=== PATIENT | female | born 1995 | race Caucasian/White ===

== ENCOUNTER 2017-08-09 21:26 | Day surgery (SDC) | payer OTHER ==
--- NOTE | 2017-08-09 22:38 | PDOC.LDHP ---
Labor and Delivery H&P Chief complaint: contractions HPI: 22 yo @ 37.2 by lmp and first tri US presents for painful contractions which she reports have been occurring over the last 2 days sporadically but have been more frequent over last 2 hours. Reports some vaginal discharge over last 2 days, denies recent intercourse, denies dysuria, denies NVDC, cp, sob, vaginal discharge, denies complications up to this point. H/o bicornuate uterus. Takes PNV. Recently seen in [facility] for similar complaints and found to be 3, 50%, -2 at that time. Current gestational age (weeks): 37 Due date: 08/28/17 Dating criteria: last menstrual period, first trimester ultrasound Grav: 2 Para: 1 Abnormal US findings: Yes (bicornuate uterus) Current medications: pre- vitamins Previous surgical history: other (ovarian cyst removal) - Physical Exam Vital signs reviewed and normal: yes General: NAD, resting Heart: RRR Lungs: nonlabored breathing Abdomen: NTTP Extremeties: no edema FHT: category 1, variability present (positive accelerations) - Vaginal Exam cm dilated: 3 Effacement: 75% Station: -2 - OB Labs Blood type: A RH: positive Antibody Screen: negative HIV: negative RPR: negative HEPSAg: negative 1 hour GCT: negative GBS: negative Urine drug screen: negative Rubella: immune - Assessment painful contractions - Plan Plan: observation in L&D -: 22 yo @ 37.2 presents for painful contractions, increasing in frequency over last 2 hours po hydrate amnisure external monitors recheck cervix in 1-2 hrs <Iam Fenton - Last Filed: 08/09/17 22:33> <Tal Mcmanus - Last Filed: 08/10/17 09:27> Allergies/Adverse Reactions: Allergies Allergy/AdvReac Type Severity Reaction Status Date / Time No Known Drug Allergies Allergy Verified 09/27/13 12:33 promethazine [From Phenergan] Allergy Verified 05/13/17 17:01 Attending Addendum - Attending Addendum I discussed the management with Dr. Fenton. I agree with the History, Examination, Assessment and Plan documented above with any addition or exceptions noted below. <Tal Mcmanus - Last Filed: 08/10/17 09:27>
[2017-08-09 23:18] LABS: Amnisure Test No Membranes Rupture (No Rupture)
[2017-08-10 00:09] LABS: Bilirubin Negative (Negative); Blood, Urine Negative (Negative); Glucose, Urine (Dipstick) Negative (Negative); Ketone, Urine Negative (Negative); Nitrite Negative (Negative); Protein, Urine (Dipstick) Negative (Neg-Trace)
== END 2017-08-09 23:45 ==
LOC: L&D/OP 21:26
PROVIDERS: ATTEND Family Medicine
DX: O47.1 False labor at or after 37 completed weeks of gestation (principal); Q51.3 Bicornate uterus; Z3A.37 37 weeks gestation of pregnancy; Z79.899 Other long term (current) drug therapy; Z88.8 Allergy status to other drugs, medicaments and biological substances; Z98.890 Other specified postprocedural states
CPT/HCPCS: 81003; 84112; 87480; 87510; 87660

== ENCOUNTER 2017-08-29 05:46 | Inpatient (IN) | payer OTHER ==
[2017-08-29 06:14] VITALS: BMI 22.1
[2017-08-29] MEDS: Lactated Ringer's 1,000 ML IV SCH ×2 (06:25→10:41)
[2017-08-29] MEDS ORDERED: Ondansetron HCl/PF 4 MG/2 ML Vial IVP PRN ×3 (06:43→17:09)
[2017-08-29] MEDS ORDERED: Lidocaine 1% (PF) 30 ML VIAL SC PRN (06:43)
[2017-08-29] MEDS ORDERED: LR / Pitocin 40 units/1000 ml 1,000 ML IV PRN (06:43)
[2017-08-29] MEDS ORDERED: Acetaminophen 500 MG TAB PO PRN (06:43)
[2017-08-29] MEDS ORDERED: LR 500 ML/Oxytocin 10 units 500 ML IV SCH (06:45)
[2017-08-29 06:57] LABS: Hematocrit 28.1 % (36.0-47.0); Mean Platelet Volume 5.9 fL (7.4-10.4); Red Blood Cell (RBC) Count 3.11 mill/uL (4.20-5.40); White Blood Cell (WBC) Count 9.2 thou/uL (4.8-10.8)
[2017-08-29] MEDS ORDERED: Calcium Carbonate 500 MG ChewTAB PO PRN (08:31)
[2017-08-29] MEDS ORDERED: Fentanyl 4 mcg/Marc 0.1% Cadd 100 ML ONE (09:12)
--- NOTE | 2017-08-29 09:13 | PDOC.LDPN ---
Labor & Delivery Progress Note - Subjective Subjective: comfortable, vaginal pressure - Objective Vital signs reviewed and normal: yes General: NAD, breathing through contractions Uterine fundus: non tender Dilation: 5 Effacement: 90% Station: -1 FHT: category 1, variability present [place] contractions every: 5 - Assessment (1) Current Visit: Yes Status: Acute QualifierTitle: Weeks of gestation: 40 weeks Qualified Code(s): Z3A.40 - 40 weeks gestation of Comment: @40.1 weeks presents for induction of labor. Initial cervical check she was @ /-1 @7:00. Check at 9:00- /-1. FHR 130, moderate variability noted. Accels noted. No decels noted. Bag is intact. Has not made change after being on pitocin. Will continue with pitocin and increase per protocol. May break her water and insert an IUPC. Wants an epidural. Will place before breaking water. -Will continue to monitor FHT. Plan: pitocin for augmentation <Valdemar Krishnamurthy - Last Filed: 08/29/17 09:10> Attending Addendum - Attending Addendum I personally evaluated the patient and discussed the management with Dr. Krishnamurthy I agree with the History, Examination, Assessment and Plan documented above with any addition or exceptions noted below. Pitocin induction for post-date. Continue increasing pitocin until good contraction pattern. Consider AROM at next check. No IUPC at this time <Winter Cornelius - Last Filed: 08/29/17 09:31>
[2017-08-29] MEDS ORDERED: ePHEDrine/0.9% NaCl/PF SYRINGE 50 mg/10 ml SLOW IVP PRN (10:34)
[2017-08-29] MEDS ORDERED: Acetaminophen 325 MG TAB PO PRN (10:34)
[2017-08-29] MEDS ORDERED: Eucerin (Mineral Oil/Petrolatum,White) 30 gm Jar TOP PRN (10:34)
[2017-08-29] MEDS ORDERED: Naloxone HCl 0.4 mg/ml Vial IVP PRN ×2 (10:34)
[2017-08-29] MEDS ORDERED: Lactated Ringer's 500 ML IV PRN (10:34)
[2017-08-29] MEDS ORDERED: diphenhydrAMINE 50 MG/ML VIAL IVP PRN (10:34)
[2017-08-29] MEDS ORDERED: Communication Order-Pharmacy FS SCH (10:45)
[2017-08-29] MEDS ORDERED: Fentanyl 4mcg/Marcaine 0.1% Cassette 100 ML EPIDURAL SCH (10:45)
--- NOTE | 2017-08-29 11:07 | PDOC.LDPN ---
Labor & Delivery Progress Note - Subjective Subjective: comfortable, painful contractions (Just had epidural placed), other (Has ) - Objective Vital signs reviewed and normal: yes General: NAD Uterine fundus: non tender SVE: 11:00 Dilation: 7 Effacement: 90% Station: -1 FHT: category 1, variability present [place] contractions every: 2 min AROM: clear fluid - Assessment (1) Current Visit: Yes Status: Acute Qualifiers: Weeks of gestation: 40 weeks Qualified Code(s): Z3A.40 - 40 weeks gestation of Comment: @40.1 weeks presents for induction of labor. Initial cervical check she was @ 5/80/-1 @7:00. Check at 9:00- 5/90/-1. FHR 130, moderate variability noted. Accels noted. No decels noted. Check at 11:00 7/90/-1. FHR 130. Moderate variability noted. Accels noted. No decels. Cat 1 strip -Pitocin running at 10 -Epidural was placed. Having minimal pain with contractions -AROM was performed at this check. Clear fluid noted. -Will continue to monitor FHT and recheck in a couple hours
--- NOTE | 2017-08-29 13:20 | PDOC.OPDEL ---
OB Operative/Delivery Note Delivery Dr/Surgeon: Sally Elizabeth MD Assist: Attending: Latia Upton MD Pre-Delivery Diagnosis: active labor, elective induction Procedure/Post Delivery Dx: spontaneous vaginal delivery Weeks gestation: 40 (40.1w) Anesthesia: epidural - Findings A Sex: male - 1 min: 9 - 5 min: 9 - Additional Findings/Plan Placenta delivered: spontaneous Repaired Obstetrical Laceration: none Estimated blood loss: 100 mL Post delivery plan: routine recovery <Sally Elizabeth - Last Filed: 08/29/17 13:19> Attending Addendum - Attending Addendum I was present for the entirety of the delivery. Agree with above. <Everton Upton - Last Filed: 08/29/17 16:17>
--- NOTE | 2017-08-29 15:18 | PDOC.EVN ---
Event Note - Event Note Event Note: CS ASSIST NOTE: Called to assist Dr Starr with a primary CS for ROM with no labor initiation despite uterotonic agents. Primary LTCS performed under pfannestiel without complications. Single layer hysterotomy closure. Compl: none. On Q pump placed. Please see full note by Dr starr.
[2017-08-29] MEDS ORDERED: Adacel (T-DAP) 0.5 ML VIAL IM ONE (17:09)
[2017-08-29] MEDS ORDERED: Ibuprofen 800 MG TAB PO SCH (17:09)
[2017-08-29] MEDS ORDERED: LR / Pitocin 40 units/1000 ml 1,000 ML IV SCH (17:09)
[2017-08-29] MEDS ORDERED: diphenhydrAMINE 25 MG CAP PO PRN (17:09)
[2017-08-29] MEDS ORDERED: Milk Of Magnesia 30 ML UDCUP PO PRN (17:09)
[2017-08-29] MEDS ORDERED: Benzocaine/Menthol 20-0.5% 60 ML CAN TOP PRN (17:09)
[2017-08-29] MEDS ORDERED: Bisacodyl 10 MG SUPP PR PRN (17:09)
[2017-08-29] MEDS ORDERED: Preparation H Ointment 28 GM TUBE PR PRN (17:09)
[2017-08-29] MEDS: Ferrous Sulfate 325 MG TAB PO SCH (20:40)
[2017-08-29] MEDS: Docusate (Surfak) 240 MG CAP PO SCH (20:40)
[2017-08-29] MEDS: Ibuprofen 800 MG TAB PO SCH (20:40)
[2017-08-30] MEDS: Ibuprofen 800 MG TAB PO SCH ×2 (04:54→14:25)
[2017-08-30 05:56] LABS: Hematocrit 32.1 % (36.0-47.0); Mean Platelet Volume 6.3 fL (7.4-10.4); Red Blood Cell (RBC) Count 3.53 mill/uL (4.20-5.40); White Blood Cell (WBC) Count 11.3 thou/uL (4.8-10.8)
--- NOTE | 2017-08-30 08:08 | PDOC.PP ---
Post Progress Note Post Day #: 1 Subjective: Feeling well today. Bleeding is minimal, far less than a period and she is having no pain or cramping. Tolerating diet and ibuprofen and well. She would like to go today if able. PO intake tolerated: yes Flatus: yes Ambulation: yes Vital Signs (12 hours) Temp Pulse Resp BP 08/30/17 04:50 98.5 F 88 18 124/71 08/30/17 00:35 97.9 F 63 18 102/53 L Weight Weight 68.039 kg - Physical Examination General: NAD Cardiovascular: no m/r/g, RRR Respiratory: clear to auscultation bilaterally, non-labored breathing Abdominal: + bowel sounds, lochia, no distention, appropriately TTP Fundus firm & at: umbilicus Extremities: negative homans (B) Skin: no rash Neurological: no gross focal deficits Psychiatric: A&Ox3, normal affect Result Diagrams: 08/30/17 05:25 Additional Labs: Post Labs Hep Bs Antigen Non-Reactive S/CO (NonReactive) 08/29/17 06:27 (1) Vaginal delivery Code(s): O80 - ENCOUNTER FOR FULL-TERM UNCOMPLICATED DELIVERY Status: Acute - Assessment/Plan 1. PPD #1 - Meeting all pp milestones - Plan for D/C later today - Continue ibuprofen for pain/cramping 2. H/o anxiety & depression - At risk for PPD, mood stable today - Will continue to monitor closely 3. Mild anemia - Can D/C iron supplementation as patient did not tolerate well - EBL 100 mL - No lacerations - Lochia minimal 4. Hyperemesis gravidarum, resolved 5. Bicornate uterus Plan for D/C later today pending ongoing success, hearing screen and bili <Sally Elizabeth - Last Filed: 08/30/17 08:05> Vital Signs (12 hours) Temp Pulse Resp BP 08/30/17 12:19 98.3 F 80 20 116/61 08/30/17 08:33 98.1 F 72 20 124/59 L 08/30/17 08:00 98.1 F 72 20 08/30/17 04:50 98.5 F 88 18 124/71 08/30/17 00:35 97.9 F 63 18 102/53 L Weight Weight 68.039 kg Result Diagrams: 08/30/17 05:25 Additional Labs: Post Labs Hep Bs Antigen Non-Reactive S/CO (NonReactive) 08/29/17 06:27 <Winter Cornelius - Last Filed: 08/30/17 12:21> Attending Addendum - Attending Addendum I personally evaluated the patient and discussed the management with Dr. Elizabeth I agree with the History, Examination, Assessment and Plan documented above with any addition or exceptions noted below. ppd#1 s/p - recovering well. Stable for d/c home <Winter Cornelius - Last Filed: 08/30/17 12:21>
[2017-08-30] MEDS ORDERED: Prenatal Vitamin 1 TAB PO SCH (09:00)
[2017-08-30] MEDS: Docusate (Surfak) 240 MG CAP PO SCH (09:58)
[2017-08-30] MEDS: Ferrous Sulfate 325 MG TAB PO SCH (09:58)
[2017-08-30 12:20] VITALS: BP 116/61; TEMP 98.3
== END 2017-08-30 17:00 | disposition home or self-care (01) | DRG 775 ==
LOC: L&D 05:46 → 3SW 16:06
PROVIDERS: ADMIT Family Medicine; ATTEND Family Medicine
PROC: 10E0XZZ Delivery of Products of Conception, External Approach (ICD-10-PCS; principal; 2017-08-29)
PROC: 10907ZC Drainage of Amniotic Fluid, Therapeutic from Products of Conception, Via Natural or Artificial Opening (ICD-10-PCS; 2017-08-29)
PROC: 4A0HXCZ Measurement of Products of Conception, Cardiac Rate, External Approach (ICD-10-PCS; 2017-08-29)
DX: O21.0 Mild hyperemesis gravidarum (principal); O99.344 Other mental disorders complicating childbirth; O34.03 Maternal care for unspecified congenital malformation of uterus, third trimester; O69.81X0 Labor and delivery complicated by cord around neck, without compression, not applicable or unspecified; O99.02 Anemia complicating childbirth; D64.9 Anemia, unspecified; F32.9 Major depressive disorder, single episode, unspecified; F41.9 Anxiety disorder, unspecified; Z37.0 Single live birth; Z3A.40 40 weeks gestation of pregnancy
CPT/HCPCS: 36415; 85027; 86780; 87340; J2001; J7120

== ENCOUNTER 2019-10-26 18:02 | Emergency (ER) | payer OTHER, SELFPAY ==
[2019-10-26 19:46] LABS: Bilirubin Negative (Negative); Blood, Urine Negative (Negative); Clarity Clear (Clear); Glucose, Urine (Dipstick) Normal (Negative); Leukocyte Negative Leu/uL (Negative); Nitrite Negative (Negative); Protein, Urine (Dipstick) Negative (Neg-Trace); Urobilinogen 3 mg/dL (Less than 2)
[2019-10-26 19:47] LABS: Pregnancy Test - Urine (BHCG) Negative (Negative); Pregu Control Background? CLEAR/WHITE (CLR/WHITE); Pregu Control Bar Appear? YES (CONTROL BAR); Specific Gravity 1.023 (1.002-1.036)
[2019-10-26 20:02] LABS: #Eosinphils 0.1 thou/uL (0.0-0.7); #Lymphocytes 3.2 thou/uL (1.20-3.40); #Monocytes 0.6 thou/uL (0.11-0.59); #Neutrophils 7.9 thou/uL (1.40-6.50); %Basophils 0.3 % (0.0-1.0); %Eosinophils 0.4 % (0.0-10.0); %Lymphocytes 27.2 % (21.0-51.0); %Monocytes 5.4 % (0.0-10.0); %Neutrophils 66.7 % (42.0-75.0); Hemoglobin 13.5 g/dL (12.0-16.0); Mean Corpuscular HGB CONC 35.2 g/dL (32.0-36.0); Mean Corpuscular Hemoglobin 32.1 pg (27.0-31.0); Mean Corpuscular Volume 91.1 fL (78.0-98.0); Mean Platelet Volume 7.6 fL (7.4-10.4); Platelet Count 261 thou/uL (130-400); RBC Distribution Width 11.2 % (11.5-14.5); White Blood Cell (WBC) Count 11.9 thou/uL (4.8-10.8)
[2019-10-26 20:22] LABS: ALT (SGPT) 14 U/L (8-55); AST (SGOT) 17 U/L (5-34); Albumin 4.7 g/dL (3.5-5.0); Alkaline Phosphatase 52 U/L (40-110); Anion Gap 12 mmol/L (10-20); BUN (Urea Nitrogen) 11 mg/dL (7.0-18.7); Bilirubin, Total 0.3 mg/dL (0.2-1.2); Calc. Creatinine Clearance 0 mL/min (70-130); Calcium 9.6 mg/dL (7.8-10.44); Carbon Dioxide 23 mmol/L (22-29); Chloride 108 mmol/L (98-107); Estimated GFR-MDRD 84; Glucose 87 mg/dL (70-105); Potassium 4.1 mmol/L (3.5-5.1); Protein, Total 7.7 g/dL (6.0-8.3); Sodium 139 mmol/L (136-145)
== END 2019-10-26 22:01 | disposition home or self-care (01) ==
LOC: ERS 18:02
DX: R53.1 Weakness (principal); F41.9 Anxiety disorder, unspecified
CPT/HCPCS: 36415; 80053; 81003; 81025; 85025; 99284